=== PATIENT | female | born 2005 | race Asian ===

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

== ENCOUNTER 2025-01-17 15:32 | Observation (INO) | payer OTHER, SELFPAY ==
[2025-01-17 15:43] VITALS: BP 145/91; PULSE 95; RESP 20; TEMP 36.7; O2SAT 94; BMI 34.8
--- NOTE | 2025-01-17 16:12 | RESP.RT ---
Pt here for asthma exacerbation. BBS decreased in based, tight, aeration fairly good in upper lobes. She is very tearful, she is s [place] student. Plan to give 3 duonebs back to back. SPO2 94% Hr 93 [place] during treatment. She did start prednisone today. Per Liv, she has a standing prescription She beliefs the smoke poor air quality today has set off her asthma.
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
[2025-01-17] MEDS: IPRAT-ALBUT 0.5-2.5 MG/3 ML NEB 1 NEB IH ×4 (16:30→19:25)
[2025-01-17 16:45] VITALS: BP 138/75; PULSE 80; RESP 18; TEMP 36.7; O2SAT 94; O2SAT 95
[2025-01-17] MEDS: MAGNESIUM IV 2 GM/50 ML PIGGYBACK IVPB (17:02)
[2025-01-17 17:12] LABS: HCO3 VBG 20 mmol/L (21-28); PCO2 VBG 33 mmHG (40-50); PO2 VBG 57.2 mmHG (25-47); pH VBG 7.403 (7.32-7.43)
[2025-01-17 17:18] LABS: Basophils Percent Auto 0.3 % (0.0-3.0); Eosinophils Percent Auto 1.6 % (0.0-7.0); Hematocrit 43.5 % (33.0-51.0); Hemoglobin* 14.8 gm/dL (12.0-16.0); Immature Granulocytes Pct Auto 0.1 %; Lymphocytes Percent Auto 6.2 % (20-44); Mean Corpuscular HGB Conc 34 gm/dL (32-36); Mean Corpuscular Hemoglobin 28 pg (26-34); Mean Corpuscular Volume 83 fL (80-100); Monocytes Percent Auto 1.5 % (0.0-11.0); Neutrophils Percent Auto 90.3 % (42.0-72.0); Platelet Count* 298 K/uL (140-440); RDW Coefficient of Variation % 13.3 % (11.5-15.5); Red Blood Count 5.23 m/uL (4.00-5.20)
[2025-01-17 17:22] LABS: Slide Review Reflex No
[2025-01-17 17:29] LABS: Chloride* 106 mmol/L (96-114); Potassium* 4.6 mmol/L (3.6-5.1); Sodium* 136 mmol/L (135-149)
[2025-01-17 17:32] LABS: Anion Gap 11 mEq/L (7-15); Blood Urea Nitrogen* 10 mg/dL (5-24); Calcium* 9.8 mg/dL (8.7-10.8); Carbon Dioxide* 19 mmol/L (20-32); Creatinine* 0.5 mg/dL (0.6-1.2); Est. Creatinine Clearance* 143.13; Estimated Glomerular Filt Rate 138 ml/min; Glucose* 114 mg/dL (60-115)
--- NOTE | 2025-01-17 17:32 | CRLHL7_ITS ---
For Patients: As a result of the Century Cures Act, medical imaging exams and procedure reports are released immediately into your electronic medical record. You may view this report before your referring provider. If you have questions, please contact your health care provider. INDICATION: Asthma exacerbation TECHNIQUE: Chest radiograph 1 view COMPARISON: 10/28/2024 FINDINGS: The sensitivity and specificity of the exam are moderately limited by the patient`s body habitus. Mediastinum: The mediastinum is normal in appearance. The heart silhouette is normal in size and morphology. The pulmonary arteries are near the upper limits of normal in size. Lung: Both lungs are unremarkable in appearance with small lung volumes. No sign of pleural effusion seen. No pneumothorax is identified. Bone and Soft tissue: Unremarkable for age. IMPRESSION: 1. No acute cardiopulmonary disease is seen. Dictated by: Dilshad Navarro MD @ 01/17/2025 17:55:41 (Electronically Signed)
[2025-01-17 17:49] LABS: Procalcitonin* 0.04 ng/mL (<0.50)
[2025-01-17 17:56] LABS: PCR FLU A Negative PCR FLU A (Negative); PCR FLU B Negative PCR FLU B (Negative); PCR RSV Negative PCR RSV (Negative); SARS PCR* Negative SARS-CoV-2 (Negative)
[2025-01-17 19:06] VITALS: BP 144/85; PULSE 107; RESP 18; RESP 22; O2SAT 91
[2025-01-17 19:29] VITALS: RESP 20; O2SAT 92
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
[2025-01-17] MEDS: METHYLPREDNISOLONE SOD SUCC 40 MG/ML IVP (20:02)
[2025-01-17] MEDS: SODIUM CHLORIDE 0.9 % (FLUSH) 10 ML SYRINGE 5 ML IVF (20:03)
[2025-01-17] MEDS: BUDESONIDE 0.5 MG/2ML NEB NEB (21:03)
[2025-01-17] MEDS: BENZONATATE 100 MG CAPSULE 200 MG PO (21:03)
[2025-01-17 21:25] VITALS: BP 139/92; PULSE 98; RESP 20; TEMP 36.5; O2SAT 93
[2025-01-18] VITALS (7 sets, daily range): BP systolic 120–140; BP diastolic 82–93; PULSE 69–96; RESP 16–20; TEMP 36.7–36.9; O2SAT 90–95
[2025-01-18] MEDS: IPRAT-ALBUT 0.5-2.5 MG/3 ML NEB 1 NEB IH ×5 (01:20→22:57)
--- NOTE | 2025-01-18 05:55 | PC.NURSE ---
Pt alert and oriented x3. Afebrile. On room air. Pt denies pain, chest pain, and N/V. Pt reports SOB, managed with scheduled nebulizers. Pt?s lungs sounds have inspiratory and expiratory wheezing. Pt is up ad chad, voiding, and tolerating a regular diet. ??
[2025-01-18 06:25] LABS: HCO3 VBG 22 mmol/L (21-28); PCO2 VBG 37 mmHG (40-50); PO2 VBG 52.5 mmHG (25-47); pH VBG 7.393 (7.32-7.43)
[2025-01-18 06:34] LABS: Basophils Percent Auto 0.1 % (0.0-3.0); Eosinophils Percent Auto 0.4 % (0.0-7.0); Hematocrit 42.6 % (33.0-51.0); Hemoglobin* 14.5 gm/dL (12.0-16.0); Immature Granulocytes Pct Auto 0.2 %; Lymphocytes Percent Auto 9.9 % (20-44); Mean Corpuscular HGB Conc 34 gm/dL (32-36); Mean Corpuscular Hemoglobin 29 pg (26-34); Mean Corpuscular Volume 84 fL (80-100); Monocytes Percent Auto 2.5 % (0.0-11.0); Neutrophils Percent Auto 86.9 % (42.0-72.0); Platelet Count* 317 K/uL (140-440); RDW Coefficient of Variation % 13.3 % (11.5-15.5); Red Blood Count 5.07 m/uL (4.00-5.20); White Blood Count* 14.14 K/uL (4.50-11.00)
[2025-01-18 06:35] LABS: Slide Review Reflex No
[2025-01-18 06:44] LABS: Chloride* 106 mmol/L (96-114)
[2025-01-18 06:45] LABS: Potassium* 4.5 mmol/L (3.6-5.1); Sodium* 137 mmol/L (135-149)
[2025-01-18 06:48] LABS: Anion Gap 11 mEq/L (7-15); Blood Urea Nitrogen* 13 mg/dL (5-24); Calcium* 9.6 mg/dL (8.7-10.8); Carbon Dioxide* 20 mmol/L (20-32); Creatinine* 0.5 mg/dL (0.6-1.2); Est. Creatinine Clearance* 143.13; Estimated Glomerular Filt Rate 138 ml/min; Glucose* 115 mg/dL (60-115)
[2025-01-18 06:51] LABS: C Reactive Protein* 0.9 mg/dL (0.5-1.0)
[2025-01-18] MEDS: predniSONE 20 MG TABLET 60 MG PO (08:23)
[2025-01-18] MEDS: SPIRONOLACTONE 25 MG TABLET 50 MG PO (09:13)
[2025-01-18] MEDS: BUDESONIDE 0.5 MG/2ML NEB NEB ×2 (09:13→22:57)
[2025-01-18] MEDS: BENZONATATE 100 MG CAPSULE 200 MG PO ×3 (09:13→22:55)
[2025-01-18] MEDS: SODIUM CHLORIDE 0.9 % (FLUSH) 10 ML SYRINGE 5 ML IVF ×2 (09:14→22:57)
--- NOTE | 2025-01-18 11:03 | PM.IMPN1 ---
Assessment and Plan Assessment and plan (1) Asthma with acute exacerbation: Problem comment: -not hypoxic; anxious with intervals of tachypnea and wheeze -self started an old Prednisone rx at 30mg orally 01/17, given Solumedrol 40mg IVP in ER and initiated Prednisone 60mg orally am on 01/18 -scheduled DuoNeb; prn albuterol and DuoNeb -budesonide nebs scheduled -no antibiotics at this time Status: Acute (2) History of cannabis vaping: Problem comment: this has tapered off in recent year Status: Acute (3) History of nicotine vaping: Problem comment: this has tapered off in recent year Status: Acute (4) Mild tetrahydrocannabinol (THC) abuse: Problem comment: edibles prn Status: Acute Plan - per above - given air quality and current status (acute dyspneic episode), recommend one more day in the hospital to continue to assess - likely d/c tomorrow pending clinical course - mom updated by phone, questions answered Subjective Date Seen: 01/18/25 Interval history: Liv was admitted to the hospital yesterday for an asthma exacerbation. Long history of asthma, multiple previous hospitalizations, intubated once as a young child. Currently living in the local dorms at [employer] (does not currently have air conditioning, air quality poor). This morning, she is feeling a little better, not yet back to baseline. Had an episode this morning with acute tachypnea, improved after neb. We are treating with steroids, nebs, home dose of antihistamine. RT following. Not requiring supplemental oxygen today. Exam Narrative: Exam Narrative: GEN: Alert and oriented, at rest is speaking in full sentences (during acute dyspneic episode, 1-2 word dyspnea) HEENT: EOMIs bilaterally, no scleral icterus CV: RRR, No concerning murmurs R: Rhonchi throughout, decreased bibasilar breath sounds, intermittent wheezing Ext: wwp, no concerning edema Skin: No concerning skin lesions or rashes on exposed skin Neuro: Nonfocal Psych: Appropriate Const: Vital Signs, click to edit/add: Vital Signs - 24 hr 01/17/25 15:43 01/17/25 16:45 01/17/25 16:45 Temperature 98.0 F 98.0 F Pulse Rate [Pulse Oximeter] 95 80 Pulse Rate [Right Pulse Oximeter] Respiratory Rate 20 18 Blood Pressure [Ri ght Arm] Blood Pressure [Ri ght Upper Arm] 145/91 H 138/75 Pulse Oximetry 94 94 95 Oxygen Delivery Me thod Room Air Room Air 01/17/25 19:06 01/17/25 19:06 01/17/25 19:29 Temperature Pulse Rate [Pulse Oximeter] Pulse Rate [Right Pulse Oximeter] 107 H Respiratory Rate 18 22 Blood Pressure [Ri ght Arm] 144/85 H Blood Pressure [Ri ght Upper Arm] Pulse Oximetry 91 91 92 Oxygen Delivery Ok thod Room Air Room Air 01/17/25 19:29 01/17/25 21:25 01/17/25 21:25 Temperature 97.7 F Pulse Rate [Pulse Oximeter] Pulse Rate [Right Pulse Oximeter] 98 98 Respiratory Rate 20 20 20 Blood Pressure [Ri ght Arm] 139/92 H Blood Pressure [Ri ght Upper Arm] Pulse Oximetry 92 93 Oxygen Delivery Ok thod Room Air Room Air 01/18/25 01:25 01/18/25 08:29 01/18/25 08:33 Temperature 98.5 F 98.1 F Pulse Rate [Pulse Oximeter] Pulse Rate [Right Pulse Oximeter] 96 79 Respiratory Rate 20 16 16 Blood Pressure [Ri ght Arm] 137/85 123/91 H Blood Pressure [Ri ght Upper Arm] Pulse Oximetry 95 94 Oxygen Delivery Ok thod Room Air Room Air Labs Labs: Laboratory Results - last 24 hr 01/17/25 01/18/25 17:00 05:56 WBC 15.70 H 14.14 H RBC 5.23 H 5.07 Hgb 14.8 14.5 Hct 43.5 42.6 MCV 83 84 MCH 28 29 MCHC 34 34 RDW Coeff of [place] 13.3 13.3 Plt Count 298 317 Neut % (Auto) 90.3 H 86.9 H Lymph % (Auto) 6.2 L 9.9 L [place] % (Auto) 1.5 2.5 Eos % (Auto) 1.6 0.4 Baso % (Auto) 0.3 0.1 Neut # (Auto) 14.20 H 12.30 H Lymph # (Auto) 1.00 1.40 [place] # (Auto) 0.20 0.40 Eos # (Auto) 0.30 0.10 Baso # (Auto) 0.00 0.00 Abs Immat Gran (auto) 0.00 0.00 Imm/Tot Granulo (auto) 0.1 0.2 VBG pH 7.403 7.393 VBG pCO2 33 L 37 L VBG pO2 57.2 H 52.5 H VBG HCO3 20 L 22 Sodium 136 137 Potassium 4.6 4.5 Chloride 106 106 Carbon Dioxide 19 L 20 Anion Gap 11 11 BUN 10 13 Creatinine 0.5 L 0.5 L Estimated Creat Clear 143.13 143.13 Estimated GFR 138 138 Glucose 114 115 Calcium 9.8 9.6 C-Reactive Protein 0.9 Procalcitonin 0.04 SARS-CoV-2 (PCR) Negative SARS-CoV-2 Influenza Type A (PCR) Negative PCR FLU A Influenza Type B (PCR) Negative PCR FLU B RSV (PCR) Negative PCR RSV
--- NOTE | 2025-01-18 18:49 | PC.NURSE ---
Patient was tired but alert and oriented and vitally stable upon initial assessment. Audible exhalation wheezing with a stethoscope in the left lobes. They did not report trouble breathing at this time. As the morning progressed the patient began to experience shortness of breath and increased wheezing. MD notified and assessed at bedside along with intervention from the raspatory therapist. Breathing eased. My mid-day assessment found that her lung sounds are far more wheezy and in both lobes. Mild abdominal discomfort found at this time but no other associated symptoms found on follow up. Afternoon assessment found the patient?s lungs sounding better than in the morning. Only slight wheeze on expiration. They are independent in the room. Wheezing present but otherwise appear well.?
[2025-01-19 05:00] VITALS: BP 92/62; PULSE 68; RESP 18; TEMP 36.6; O2SAT 95
[2025-01-19] MEDS: IPRAT-ALBUT 0.5-2.5 MG/3 ML NEB 1 NEB IH ×2 (05:08→08:10)
--- NOTE | 2025-01-19 05:30 | PC.NURSE ---
Pt is alert and oriented x3. Afebrile. On room air. Pt denies pain, chest pain, SOB, and N/V. Pt?s lung sounds are clear. Pt is up ad chad, voiding, and tolerating a regular diet. ??
[2025-01-19 06:34] LABS: HCO3 VBG 25 mmol/L (21-28); PCO2 VBG 42 mmHG (40-50); PO2 VBG 38.4 mmHG (25-47); pH VBG 7.383 (7.32-7.43)
[2025-01-19 06:41] LABS: Basophils Percent Auto 0.2 % (0.0-3.0); Eosinophils Percent Auto 2.3 % (0.0-7.0); Hematocrit 40.9 % (33.0-51.0); Hemoglobin* 13.7 gm/dL (12.0-16.0); Immature Granulocytes Pct Auto 0.2 %; Lymphocytes Percent Auto 26.8 % (20-44); Mean Corpuscular HGB Conc 34 gm/dL (32-36); Mean Corpuscular Hemoglobin 29 pg (26-34); Mean Corpuscular Volume 86 fL (80-100); Monocytes Percent Auto 6.5 % (0.0-11.0); Platelet Count* 284 K/uL (140-440); RDW Coefficient of Variation % 13.6 % (11.5-15.5); Red Blood Count 4.77 m/uL (4.00-5.20); White Blood Count* 12.59 K/uL (4.50-11.00)
[2025-01-19 06:51] LABS: Chloride* 107 mmol/L (96-114); Potassium* 4.2 mmol/L (3.6-5.1); Sodium* 136 mmol/L (135-149)
[2025-01-19 06:53] LABS: Slide Review Reflex No
[2025-01-19 06:54] LABS: Blood Urea Nitrogen* 17 mg/dL (5-24); Creatinine* 0.6 mg/dL (0.6-1.2); Est. Creatinine Clearance* 119.28; Estimated Glomerular Filt Rate 133 ml/min
[2025-01-19 06:55] LABS: Anion Gap 5 mEq/L (7-15); Carbon Dioxide* 24 mmol/L (20-32); Glucose* 86 mg/dL (60-115)
[2025-01-19 07:00] VITALS: BP 99/57; PULSE 71; RESP 20; TEMP 36.6; O2SAT 95
[2025-01-19] MEDS: predniSONE 20 MG TABLET 60 MG PO (08:10)
[2025-01-19] MEDS: BUDESONIDE 0.5 MG/2ML NEB NEB (08:58)
[2025-01-19] MEDS: SPIRONOLACTONE 25 MG TABLET 50 MG PO (08:58)
[2025-01-19] MEDS: BENZONATATE 100 MG CAPSULE 200 MG PO (08:58)
[2025-01-19] MEDS: Budesonide-Formoterol 160-4.5 mcg/actuation HFA 2 EACH IH (08:59)
--- NOTE | 2025-01-19 09:02 | PM.DS1 ---
DS: Providers Provider Date Seen: 01/19/25 Date of admission: 01/17/25 18:36 Primary care physician: Not a Local Provider Admitting Clinician: Elvi Jung MD Consults: 01/17/25 19:29 Consult to Respiratory Therapy [CONS] Routine Comment: Reason(s) for RT Consult:: Consult Attending Physician on discharge: Ella Colin MD Date of Discharge: 01/19/25 DS: Diagnosis Discharge Diagnosis (1) Asthma with acute exacerbation: Status: Acute Problem details: -tachypnea and wheezing, O2 saturations estela of 90-91% -self started an old Prednisone Rx at 30mg orally 01/17, given Solumedrol 40mg IVP in ER and initiated Prednisone 60mg orally am on 01/18 -treated with nebs, steroids, followed by RT DS: Summary Hospital Course Hospital Course: Liv was admitted to the hospital on 01/17/25 for an asthma exacerbation. Long history of asthma, multiple previous hospitalizations, intubated once as a young child. For the summer, living in dorms at [place] (does not currently have air conditioning, air quality poor). During stay, treated with steroids, nebs, home dose of antihistamine. Did not require supplemental oxygen, O2 saturation estela of 90-91%. RT followed during stay. Back to baseline and appropriate for d/c home on 01/19/25. Upon discharge, she will continue a long Prednisone taper and transition from Symbicort to Breo. Status at Discharge Functional status at discharge: independent ambulation Overall status at discharge: patient is progressing back to baseline Time Spent with Patient Time attestation: Total time spent providing and/or coordinating discharge services: Exam Narrative: Exam Narrative: GEN: Alert and oriented, sitting comfortably in bed and eating breakfast, speaking in full sentences HEENT: EOMIs bilaterally, no scleral icterus CV: RRR, No concerning murmurs R: Rhonchi throughout, improved air movement from yesterday Ext: wwp, no concerning edema Skin: No concerning skin lesions or rashes on exposed skin Neuro: Nonfocal Psych: Appropriate Const: Vital Signs, click to edit/add: Vital Signs - 24 hr 01/18/25 11:00 01/18/25 15:27 01/18/25 19:29 Temperature 98.1 F 98.2 F Pulse Rate [Right Pulse Oximeter] 86 95 Respiratory Rate 16 16 Blood Pressure [Le ft Arm] 135/93 H 140/82 H Pulse Oximetry 90 91 94 Oxygen Delivery Me thod Room Air Room Air 01/18/25 23:00 01/19/25 05:00 01/19/25 07:00 Temperature 97.8 F 97.8 F Pulse Rate [Right Pulse Oximeter] 69 68 71 Respiratory Rate 20 18 20 Blood Pressure [Le ft Arm] 120/86 92/62 99/57 L Pulse Oximetry 94 95 95 Oxygen Delivery Me thod Room Air Room Air DS: Data Data Completed and Pending Labs on day of discharge: Labs from last 24 hours 01/19/25 06:20 WBC 12.59 H RBC 4.77 Hgb 13.7 Hct 40.9 MCV 86 MCH 29 MCHC 34 RDW Coeff of [place] 13.6 Plt Count 284 Neut % (Auto) 64.0 Lymph % (Auto) 26.8 [place] % (Auto) 6.5 Eos % (Auto) 2.3 Baso % (Auto) 0.2 Neut # (Auto) 8.10 H Lymph # (Auto) 3.40 H [place] # (Auto) 0.80 Eos # (Auto) 0.30 Baso # (Auto) 0.00 Abs Immat Gran (auto) 0.00 Imm/Tot Granulo (auto) 0.2 VBG pH 7.383 VBG pCO2 42 VBG pO2 38.4 VBG HCO3 25 Sodium 136 Potassium 4.2 Chloride 107 Carbon Dioxide 24 Anion Gap 5 L BUN 17 Creatinine 0.6 Estimated Creat Clear 119.28 Estimated GFR 133 Glucose 86 Calcium 9.0 Discharge Plan Discharge Disposition: Home, Self-Care Date of Admission: 01/17/25 18:36 Attending Provider on Discharge: Ella Colin Primary Care Provider: Provider,Not a Local Condition: Improved Anticipated Discharge Date/Time: 01/18/25 09:40 Discharge Medications: New fluticasone furoate-vilanterol [Breo Ellipta] 200-25 mcg/dose blister with device 1 inh inhalation DAILY 30 Days Qty: 60 3RF prednisone 10 mg tablet 10 mg PO DIRECTED Qty: 61 0RF Rx Instructions: 6 tabs po Qd x3d, then 4tabs po x4d, then 3 tabs po x4d, then 2 tabs po x4d, then 1 tab po x7d, then stop Continued spironolactone 50 mg tablet 50 mg PO QAM Zyrtec 10 mg capsule 10 mg PO QDAY PRN duloxetine 20 mg capsule,delayed release(DR/EC) 20 mg PO QDAY Qty: 30 2RF albuterol sulfate 90 mcg/actuation HFA aerosol inhaler 2 - 4 puff inhalation Q4H PRN (Reason: wheezing) lidocaine 5 % gel 1 ea topical .TID PRN Qty: 10 3RF Discontinued budesonide-formoterol 160-4.5 mcg/actuation HFA aerosol inhaler 2 puff inhalation QDAY prednisone 10 mg tablet 10 mg PO DIRECTED Qty: 30 0RF Rx Instructions: Take four (4) tablets by mouth on days 1-3. Take three (3) tablets by mouth on days 4-6. Take two (2) tablets by mouth on days 7-9. Take one (1) tablet by mouth on days 10-12. Discharge Orders: Discharge Order (Routine); Ordered 01/19/25 Ordered By: Ella Colin Patient Education: Prednisone (By mouth), Fluticasone/Vilanterol (By breathing) (Breo Ellipta), Asthma (DC) Additional Instructions: Start Breo when you get it (Stop the Symbicort at that time). Both Bren and long Prednisone taper sent to [facility]. Continue the rest of your regular medications. Activity Level: No strenuous activity Discharge Diet: Regular Follow Up Appointments: Provider,Not a Local [Primary Care Provider, Family Practice] Forms: Work/School Release, [facility] Info Instructions
== END 2025-01-19 10:50 | disposition home or self-care (01) ==
LOC: ED 18:33 → MEDSURG 18:37
PROVIDERS: Family Medicine; Admitting Provider Family Medicine; Emergency Provider Family Medicine; Visit Provider Family Medicine
DX: J45.901 Unspecified asthma with (acute) exacerbation (principal); R06.82 Tachypnea, not elsewhere classified; R05.9 Cough, unspecified; F12.10 Cannabis abuse, uncomplicated; E78.5 Hyperlipidemia, unspecified; N94.819 Vulvodynia, unspecified; M54.89 Other dorsalgia; E28.2 Polycystic ovarian syndrome; Z87.891 Personal history of nicotine dependence; Z87.898 Personal history of other specified conditions; Z87.09 Personal history of other diseases of the respiratory system
CPT/HCPCS: 36415; 71045; 80048; 82803; 84145; 85025; 86140; 87631; 94640; 94761; 96365; 96375; 99284; 99285; A9270; G0378; J2919; J3475; J7512; J7626